=== PATIENT | male | born 2000 | race Caucasian/White ===

== ENCOUNTER 2019-09-05 18:02 | Emergency (ER) | payer OTHER, MEDICAID, SELFPAY ==
[2019-09-05 18:18] VITALS: BP 133/90; PULSE 77; RESP 14; TEMP 36.8; O2SAT 98
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
[2019-09-05] MEDS: OLANZapine 2.5 MG TABLET 5 MG PO (18:48)
--- NOTE | 2019-09-05 19:21 | DI.RAD.S_ITS ---
PROCEDURE: XR ABDOMEN MIN 2V INDICATIONS: possible constipation, autism TECHNIQUE: 2 views of the abdomen were acquired. COMPARISON: None. FINDINGS: Surgical changes and devices: None. Bowel: No pneumoperitoneum. The bowel gas pattern is normal. Significant colonic stool. No obstruction Soft tissues: No masses; visualized solid organ contours appear normal in size. No suspicious abdominal calcifications. Bones: No suspicious bony abnormalities. IMPRESSION: Prominent constipation. No obstruction. Dictated by: Minnie Blackman M.D. on 09/05/2019 at 19:46 Approved by: Minnie Blackman M.D. on 09/05/2019 at 19:46
[2019-09-05] MEDS: MAGNESIUM CITRATE 300 ML SOLUTION PO (20:15)
== END 2019-09-05 20:19 | disposition home or self-care (01) ==
PROVIDERS: Emergency Provider Emergency Medicine
DX: R45.1 Restlessness and agitation (principal); K59.00 Constipation, unspecified; F84.0 Autistic disorder
CPT/HCPCS: 74019; 81003; 99282; 99283

== ENCOUNTER → 2023-05-05 11:11 | Outpatient (CLI) | payer OTHER, MEDICAID, SELFPAY | PROVIDERS: PCP Family Medicine; Visit Provider Family Medicine | DX: L03.031 Cellulitis of right toe (principal); L60.0 Ingrowing nail | CPT/HCPCS: 87070; 87075; 87077; 87186; 87205 ==

== ENCOUNTER → 2023-07-08 09:05 | Outpatient (CLI) | payer OTHER, MEDICAID, SELFPAY ==
--- NOTE | 2023-07-08 09:07 | DI.RAD.S_ITS ---
PROCEDURE: XR T AND L SPINE 4 TO 5 VIEWS INDICATIONS: eval curve of spine/back pain TECHNIQUE: 2 views acquired of the thoracolumbar spine. COMPARISON: None. FINDINGS: Bones: No acute fractures or dislocations. Visualized inferior ribs appear intact. No suspicious bony lesions. There is S shaped scoliosis of the thoracolumbar spine. The thoracic spine has dextroscoliosis with a Johnson angle of 15? and the right apex at T8. The the thoracolumbar spine has levoscoliosis with a Johnson angle of 14? and the left apex at L1. Soft tissues: No suspicious soft tissue calcifications. IMPRESSION: Thoracolumbar S-shaped scoliosis. The Dictated by: Dev Lowe M.D. on 07/08/2023 at 10:12 Approved by: Dev Lowe M.D. on 07/08/2023 at 10:14
== END ==
PROVIDERS: PCP Family Medicine; Referring Provider Family Medicine; Visit Provider Family Medicine
DX: M54.9 Dorsalgia, unspecified (principal); M41.9 Scoliosis, unspecified
CPT/HCPCS: 72083